=== PATIENT | male | born 1965 | race Caucasian/White ===

== ENCOUNTER 2017-07-21 13:55 | Emergency (ER) | payer MEDICAID, OTHER ==
[~2017-07-21] VITALS: Ht 185.4 cm; Wt 95.3 kg
[2017-07-21 13:55] VITALS: BP 114/76
[~2017-07-21 13:55] MED LIST: GABAPENTIN400 MG ORAL; GABAPENTIN800 MG ORAL; IBUPROFEN600 MG ORAL; KEPPRA1000 MG ORAL; NORCO 5-325 TA1 EACH ORAL
[2017-07-21] MEDS ORDERED: LORazepam 0.5mg tab ORAL ONE (14:45)
[2017-07-21] MEDS ORDERED: ZyPREXA Zydis 10mg tab ORAL ONE (14:45)
[2017-07-21 16:02] VITALS: BP 119/76
[2017-07-21 16:11] LABS: BASOPHILS % (AUTO) 1.2 % (0.0-2.0); EOSINOPHILS % (AUTO) 3.4 % (0.0-3.0); HEMATOCRIT 43.3 % (42.0-52.0); HEMOGLOBIN 15.6 G/DL (14.2-18.0); LYMPHOCYTES % (AUTO) 28.4 % (20.0-45.0); MEAN CORPUSCULAR VOLUME 91 FL (80-99); MONOCYTES % (AUTO) 10.8 % (1.0-10.0); NEUTROPHILS % (AUTO) 56.2 % (45.0-75.0); PLATELET COUNT 259 K/UL (150-450); RED BLOOD COUNT 4.78 M/UL (4.70-6.10); RED CELL DISTRIBUTION WIDTH 11.9 % (11.6-14.8); WHITE BLOOD COUNT 6.4 K/UL (4.8-10.8)
[2017-07-21 16:25] LABS: ANION GAP 7 mmol/L (5-15); BLOOD UREA NITROGEN 7 mg/dL (7-18); CALCIUM 8.8 MG/DL (8.5-10.1); CARBON DIOXIDE 30 MMOL/L (21-32); CHLORIDE 105 MMOL/L (98-107); CREATININE 0.9 MG/DL (0.55-1.30); POTASSIUM 3.8 MMOL/L (3.5-5.1); SODIUM 142 MMOL/L (136-145)
[2017-07-21 16:28] LABS: ALANINE AMINOTRANSFERASE 26 U/L (12-78); ALBUMIN 3.6 G/DL (3.4-5.0); ALBUMIN/GLOBULIN RATIO 0.9 (1.0-2.7); ALKALINE PHOSPHATASE 84 U/L (46-116); ASPARTATE AMINO TRANSFERASE 18 U/L (15-37); BILIRUBIN,TOTAL 0.3 MG/DL (0.2-1.0)
--- NOTE | 2017-07-21 17:02 | Emergency Room Report ---
History of Present Illness General Chief Complaint: General Complaint Source: Patient, Medical Record Present Illness HPI 51 YO Male presents to the ED reporting that he is out of his psych medications and seizure medications. reports he takes Zyprexa, gabapentin, Keppra, and Ativan. Denies neck or back pain. He denies having a seizure today he states he has had them in the past and requires Keppra. pt. Also reports increased anxiety. He denies fevers, chills, nausea, vomiting, abdominal pain, chest pain or palpitations. Denies SI/HI. He reports having some intermittent auditory hallucinations that do not make any particular sense. Patient reports history of this in the past which usually resolves with Zyprexa. Denies drug use. Allergies: Coded Allergies: No Known Allergies (Unverified , 04/07/15) Patient History Past Medical History: see triage record, psych hx Past Surgical History: none Pertinent Family History: none Reviewed Nursing Documentation: PMH: Agreed; PSxH: Agreed Nursing Documentation-PMH Past Medical History: No History, Except For Hx Seizures: Yes Review of Systems All Other Systems: negative except mentioned in HPI Physical Exam Vital Signs Date Time Temp Pulse Resp B/P (MAP) Pulse Ox O2 Delivery O2 Flow Rate FiO2 07/21/17 13:55 98.1 84 18 114/76 99 Room Air 98.1 Sp02 EP Interpretation: reviewed, normal General Appearance: no apparent distress, alert, GCS 15, non-toxic, other - Disheveled Head: normocephalic, atraumatic Eyes: bilateral eye normal inspection, bilateral eye PERRL ENT: hearing grossly normal, normal voice, other - no oral lesions, no blood/ oral trauma Neck: full range of motion, no bony tend Respiratory: lungs clear, normal breath sounds, speaking full sentences Cardiovascular #1: regular rate, rhythm, no edema Gastrointestinal: normal bowel sounds, non tender, soft Genitourinary: normal inspection Musculoskeletal: back normal, gait/station normal, normal range of motion, non- tender Neurologic: alert, oriented x3, responsive, motor strength/tone normal, sensory intact, speech normal, grossly normal Psychiatric: memory normal, no suicidal/homicidal ideation, other - reports auditory hallucinations, Skin: normal color, no rash, warm/dry, well hydrated Lymphatic: no adenopathy Medical Decision Making PA Attestation Dr. Morrison is my supervising Physician whom patient management has been discussed with. Diagnostic Impression: Primary Impression: Medication refill Additional Impressions: Auditory hallucination History of seizures ER Course 51 YO Male presents to the ED reporting that he is out of his psych medications and seizure medications. reports he takes Zyprexa, gabapentin, Keppra, and Ativan. Denies neck or back pain. He denies having a seizure today he states he has had them in the past and requires Keppra. pt. Also reports increased anxiety. He denies fevers, chills, nausea, vomiting, abdominal pain, chest pain or palpitations. Denies SI/HI. He reports having some intermittent auditory hallucinations that do not make any particular sense. Patient reports history of this in the past which usually resolves with Zyprexa. Denies drug use. Pt appears slightly anxious, he is speaking in full sentences. no obvious abrasions, bruises, or open wounds. No oral trauma. Ddx considered but are not limited to Acute psychosis, OD, SI/HI, intoxication , illicit drug use just to name a few. Vital signs: are WNL, pt. is afebrile H&PE are most consistent with behavioral/mental health issue requiring refill of psychiatric medications. Pt. currently having symptoms so will administer some here. doing basic psych work-up with labs in the meantime to also evaluate for electrolyte abnormality. I do not suspect that this pt. had a seizure today. ORDERS: -CBC, CMP: unremarkable -UDS: Positive for Amphetamines -Salicylates and Acetaminophen - no acute intoxication. ED INTERVENTIONS: -10 mg Zyprexa zidis -500mg Keppra - 1mg Ativan PO DISPOSITION: Patient has normal laboratory workup he states that his auditory hallucinations have resolved at this time he has no current complaints. Patient is stable for close outpatient follow-up will provide [facility] urgent care information as a resource for this patient. Labs Test 07/21/17 15:55 White Blood Count 6.4 K/UL (4.8-10.8) Red Blood Count 4.78 M/UL (4.70-6.10) Hemoglobin 15.6 G/DL (14.2-18.0) Hematocrit 43.3 % (42.0-52.0) Mean Corpuscular Volume 91 FL (80-99) Mean Corpuscular Hemoglobin 32.7 PG (27.0-31.0) Mean Corpuscular Hemoglobin Concent 36.1 G/DL (32.0-36.0) Red Cell Distribution Width 11.9 % (11.6-14.8) Platelet Count 259 K/UL (150-450) Mean Platelet Volume 5.4 FL (6.5-10.1) Neutrophils (%) (Auto) 56.2 % (45.0-75.0) Lymphocytes (%) (Auto) 28.4 % (20.0-45.0) Monocytes (%) (Auto) 10.8 % (1.0-10.0) Eosinophils (%) (Auto) 3.4 % (0.0-3.0) Basophils (%) (Auto) 1.2 % (0.0-2.0) Sodium Level 142 MMOL/L (136-145) Potassium Level 3.8 MMOL/L (3.5-5.1) Chloride Level 105 MMOL/L (98-107) Carbon Dioxide Level 30 MMOL/L (21-32) Anion Gap 7 mmol/L (5-15) Blood Urea Nitrogen 7 mg/dL (7-18) Creatinine 0.9 MG/DL (0.55-1.30) Estimat Glomerular Filtration Rate > 60 mL/min (>60) Glucose Level 133 MG/DL (74-106) Calcium Level 8.8 MG/DL (8.5-10.1) Total Bilirubin 0.3 MG/DL (0.2-1.0) Aspartate Amino Transf (AST/SGOT) 18 U/L (15-37) Alanine Aminotransferase (ALT/SGPT) 26 U/L (12-78) Alkaline Phosphatase 84 U/L (46-116) Total Protein 7.4 G/DL (6.4-8.2) Albumin 3.6 G/DL (3.4-5.0) Globulin 3.8 g/dL Albumin/Globulin Ratio 0.9 (1.0-2.7) Salicylates Level 3.5 ug/mL (2.8-20) Acetaminophen Level < 2 MCG/ML (10-30) Serum Alcohol < 3 mg/dL Last Vital Signs Date Time Temp Pulse Resp B/P (MAP) Pulse Ox O2 Delivery O2 Flow Rate FiO2 07/21/17 16:02 98.3 79 18 119/76 97 Room Air 98.3 Disposition: HOME, SELF-CARE Condition: Stable Scripts Olanzapine* (ZYPREXA*) 10 Mg Tablet 10 MG ORAL DAILY, #30 TAB 0 Refills Prov: Ana Rea 07/21/17 Gabapentin* (GABAPENTIN*) 100 Mg Capsule 200 MG ORAL THREE TIMES A DAY for 7 Days, #21 CAP Prov: Ana Rea 07/21/17 Levetiracetam (KEPPRA) 500 Mg Tablet 500 MG ORAL EVERY 12 HOURS for 30 Days, #30 TAB 0 Refills Prov: Ana Rea 07/21/17 Referrals: [facility]ERR[facility] (PCP) Patient Instructions: Medicine Refill at the Emergency Department Additional Instructions: Take medications as directed. Follow up with a Primary Care Provider in 3-5 days, even if your symptoms have resolved. --Please review list of primary care clinics, if you do not already have a primary care provider [facility]* Return sooner to ED if new symptoms occur, or current symptoms become worse. - Please note that this Emergency Department Report was dictated using [employer] technology software, occasionally this can lead to erroneous entry secondary to interpretation by the dictation equipment. Ana Rea Jul 21, 2017 17:02
[2017-07-21 18:00] VITALS: BP 122/79
[2017-07-21] MEDS ORDERED: ZYPREXA10 MG ORAL (18:46)
[2017-07-21] MEDS ORDERED: KEPPRA500 M4 ORAL (18:46)
[2017-07-21] MEDS ORDERED: GABAPENTIN100 MG ORAL (18:46)
[2017-07-21 19:00] VITALS: BP 122/79
== END 2017-07-21 19:00 | disposition home or self-care (01) ==
LOC: EDBD 13:55 → EMR 14:33
DX: Z76.0 Encounter for issue of repeat prescription (principal); G40.909 Epilepsy, unspecified, not intractable, without status epilepticus; R44.0 Auditory hallucinations
CPT/HCPCS: 36415; 80053; 80299; 80307; 80329; 85025; 99284